=== PATIENT | female | born 1975 ===

== ENCOUNTER 2017-01-12 22:19 | Emergency (ER) | payer MEDICAID, OTHER ==
[2017-01-12 22:28] VITALS: BP 135/81; PULSE 78; RESP 18; TEMP 98.6; O2SAT 96; BMI 33.3
--- NOTE | 2017-01-12 23:04 | ED PDOC ---
Arrival/HPI - General Chief Complaint: ENT Problem Time Seen by Provider: 01/12/17 22:56 Historian: Patient - History of Present Illness Narrative History of Present Illness (Text): 01/12/17 22:40 41 year old female, with no past medical history, who presents to the emergency department complaining of right ear pain for the past 2 weeks. Patient reports she was given Ciprodex for an ear infection 2 weeks ago, but denies any significant relief. Patient has been taking Aleve for pain with minimal relief. Patient notes she has not been swimming recently and denies any fever, chills, cough, sore throat, rhinorrhea, nausea, vomiting, or any other complaints. Time/Duration: Other (2 weeks) Symptom Onset: Sudden Symptom Course: Unchanged Activities at Onset: Rest Context: Home Past Medical History - Provider Review Nursing Documentation Reviewed: Yes - Infectious Disease Hx of Infectious Diseases: None - Tetanus Immunization Tetanus Immunization: Unknown - Past Medical History Past Medical History: No Previous - Psychiatric Hx Depression: No Hx Emotional Abuse: No Hx Physical Abuse: No Hx Substance Use: No - Past Surgical History Past Surgical History: No Previous - Surgical History Hx Cholecystectomy: Yes - Anesthesia Hx Anesthesia: Yes Hx Anesthesia Reactions: No Hx Malignant Hyperthermia: No - Suicidal Assessment Feels Threatened In Home Enviroment: No Family/Social History - Physician Review Nursing Documentation Reviewed: Yes Family/Social History: No Known Family HX Smoking Status: Heavy Smoker > 10 Cigarettes Daily Hx Alcohol Use: No Hx Substance Use: No Allergies/Home Meds Allergies/Adverse Reactions: Allergies No Known Allergies Allergy (Verified 02/27/15 22:54) Home Medications: Home Meds Medication Instructions Recorded Confirmed No Known Home Med 01/12/17 01/12/17 Review of Systems - Physician Review All systems were reviewed & negative as marked: Yes - Review of Systems Constitutional: Normal. absent: Fevers Eyes: Normal ENT: Other (+right ear pain). absent: Sore Throat, Rhinorrhea Respiratory: Normal. absent: SOB, Cough Cardiovascular: Normal. absent: Chest Pain Gastrointestinal: Normal. absent: Nausea, Vomiting Physical Exam Vital Signs Reviewed: Yes Vital Signs Temp Pulse Resp BP Pulse Ox 01/12/17 22:24 98.6 F 78 18 135/81 96 Temperature: Afebrile Blood Pressure: Normal Pulse: Regular Respiratory Rate: Normal Appearance: Positive for: Well-Appearing, Non-Toxic, Comfortable Pain Distress: None Mental Status: Positive for: Alert and Oriented X 3 - Systems Exam Head: Present: Atraumatic, Normocephalic Pupils: Present: PERRL Extroacular Muscles: Present: EOMI Conjunctiva: Present: Normal Ears: Present: Other (Right ear mild cerumen build-up, TM is visible and is wnl) . No: Erythema, Normal Canal (Edema with white and black colored exudate in the right ear canal ), TM Bulging Mouth: Present: Moist Mucous Membranes Pharnyx: Present: Normal. No: ERYTHEMA, EXUDATE, TONSILS ENLARGED, Peritonsilar Swelling, Uvular Deviation, Muffled/Hoarse Voice, Soft Palate/ Uvular Edema, Other Nose (External): Present: Atraumatic Nose (Internal): Present: Normal Inspection Neck: Present: Normal Range of Motion. No: Meningeal Signs, MIDLINE TENDERNESS , Paraspinal Tenderness, Lymphadenopathy Respiratory/Chest: Present: Clear to Auscultation, Good Air Exchange. No: Respiratory Distress, Accessory Muscle Use Cardiovascular: Present: Regular Rate and Rhythm, Normal S1, S2. No: Murmurs Abdomen: Present: Normal Bowel Sounds. No: Tenderness, Distention, Peritoneal Signs Upper Extremity: Present: Normal Inspection. No: Cyanosis, Edema Lower Extremity: Present: Normal Inspection. No: Edema Neurological: Present: GCS=15, CN II-XII Intact, Speech Normal Skin: Present: Warm, Dry, Normal Color. No: Rashes Lymphatic: No: Cervical Adenopathy Psychiatric: Present: Alert, Oriented x 3, Normal Insight, Normal Concentration Medical Decision Making ED Course and Treatment: 01/12/17 22:45 Impression: 41 year old female with right ear pain. Differential Diagnosis included but are not limited to: otits externa, otitis media Plan: -- Cortisporin -- Tylenol -- Reassess and disposition Progress Notes: Exudates and excess cerumen was removed using a curette. Pt given a dose of cortisporin otic, bottle of cortisporin otic provided to the pt, advised to continue - administering 4 drops to the R ear 4x a day for 10 days. Pt advised that she must f/u with ENT referral as her symptoms maybe due to a fungal infection. Instructed to return to the ER at any time for any new or worsening symptoms. Pt verbalize understanding of diagnosis, treatment and plan, agrees with outpt follow up. - Medication Orders Current Medication Orders: Discontinued Medications Acetaminophen (Tylenol 325mg Tab) 975 mg PO STAT STA Stop: 01/12/17 23:22 Last Admin: 01/12/17 23:29 Dose: 975 mg Neomycin/Polymyxin/Hydrocortisone (Cortisporin Otic Susp) 0 ml AD STAT STA Stop: 01/12/17 23:23 Last Admin: 01/12/17 23:31 Dose: 4 drop Comments: right ear - PA / [employer] / Resident Statement / has reviewed & agrees with the documentation as recorded. - Scribe Statement The provider has reviewed the documentation as recorded by the Scribe Laureano robles under Jaja Anderson. All medical record entries made by the Scribe were at my direction and personally dictated by me. I have reviewed the chart and agree that the record accurately reflects my personal performance of the history, physical exam, medical decision making, and the department course for this patient. I have also personally directed, reviewed, and agree with the discharge instructions and disposition. Disposition/Present on Arrival - Present on Arrival Any Indicators Present on Arrival: No History of DVT/PE: No History of Uncontrolled Diabetes: No Urinary Catheter: No History of Decub. Ulcer: No History Surgical Site Infection Following: None - Disposition Have Diagnosis and Disposition been Completed?: Yes Diagnosis: Otitis externa of right ear Disposition: HOME/ ROUTINE Disposition Time: 00:00 Condition: STABLE Discharge Instructions (ExitCare): Otitis Externa (ED) Print Language: GEORGIAN Additional Instructions: Follow up with ENT referral provided in 1-2 days without fail. Take tylenol for fever and pain. Continue cortisporin ear drops - 4 drops to the R ear 4x a day for 10 days. Return to the ER at any time for any new or worsening symptoms. Referrals: Jean Marie Loaiza DO [Staff Provider] - Follow up with primary Forms: WORK NOTE
[2017-01-12] MEDS ORDERED: Neomycin/Polymyxin/Hydrocort Otic Susp (10 ml) AD STA (23:22)
== END 2017-01-12 23:54 | disposition home or self-care (01) ==
LOC: ED 22:19
DX: H60.91 Unspecified otitis externa, right ear (principal)

== ENCOUNTER 2017-08-27 11:01 | Emergency (ER) | payer OTHER ==
[2017-08-27 11:23] VITALS: BMI 33.3
--- NOTE | 2017-08-27 12:40 | ED PDOC ---
Arrival/HPI <Héctor Ballesteros - Last Filed: 08/27/17 12:56> <Stan Barry - Last Filed: 08/27/17 16:57> - General Chief Complaint: Lower Extremity Problem/Injury Time Seen by Provider: 08/27/17 11:18 - History of Present Illness Narrative History of Present Illness (Text): 08/27/17 12:36 Pt is a 42 yo F with no significant PMH presents to ED with left knee pain. Patient states that her left knee has been feeling heavy for the past week, but denies any pain or swelling during this time. However, when she woke up today the knee felt unstable with minimal discomfort. Patient was able to walk and get ready for work. When she arrived at work and stepped out of her car her left knee began to hurt to the point where she could not stand. Patient states she could stand, but had to transition most of her weight on her right leg. Pt states that she is unable to walk as pain and instability is severe in her left knee. Pt denies any blunt trauma or twisting motion. Pt denies any clicking or popping sensation. (Héctor Ballesteros) Past Medical History - Provider Review Nursing Documentation Reviewed: Yes - Infectious Disease Hx of Infectious Diseases: None - Tetanus Immunization Tetanus Immunization: Unknown - Reproductive Menopause: No - Past Medical History Past Medical History: No Previous - Psychiatric Hx Depression: No Hx Emotional Abuse: No Hx Physical Abuse: No Hx Substance Use: No - Past Surgical History Past Surgical History: No Previous - Surgical History Hx Cholecystectomy: Yes - Anesthesia Hx Anesthesia: Yes Hx Anesthesia Reactions: No Hx Malignant Hyperthermia: No - Suicidal Assessment Feels Threatened In Home Enviroment: No <Héctor Ballesteros - Last Filed: 08/27/17 12:56> Family/Social History - Physician Review Nursing Documentation Reviewed: Yes Family/Social History: Other (Non-contributory) Smoking Status: Heavy Smoker > 10 Cigarettes Daily Hx Alcohol Use: No Hx Substance Use: No <Héctor Ballesteros - Last Filed: 08/27/17 12:56> Allergies/Home Meds <Héctor Ballesteros - Last Filed: 08/27/17 12:56> <Stan Barry - Last Filed: 08/27/17 16:57> Allergies/Adverse Reactions: Allergies No Known Allergies Allergy (Verified 02/27/15 22:54) Review of Systems - Review of Systems Constitutional: Normal Eyes: Normal ENT: Normal Respiratory: Normal Cardiovascular: Normal Gastrointestinal: Normal Genitourinary Female: Normal Musculoskeletal: Arthralgias (left knee), Joint Swelling (left knee) Skin: Normal Neurological: Normal Endocrine: Normal Hemo/Lymphatic: Normal Psychiatric: Normal <Héctor Ballesteros - Last Filed: 08/27/17 12:56> Physical Exam Vital Signs Reviewed: Yes Temperature: Afebrile Blood Pressure: Normal Pulse: Regular Respiratory Rate: Normal Appearance: Positive for: Well-Appearing Pain Distress: Moderate Mental Status: Positive for: Alert and Oriented X 3 - Systems Exam Head: Present: Atraumatic, Normocephalic Extroacular Muscles: Present: EOMI Mouth: Present: Moist Mucous Membranes Neck: Present: Normal Range of Motion Respiratory/Chest: Present: Clear to Auscultation. No: Respiratory Distress, Accessory Muscle Use Cardiovascular: Present: Regular Rate and Rhythm, Normal S1, S2. No: Murmurs Abdomen: No: Tenderness, Distention, Rebound, Guarding Back: Present: Normal Inspection Upper Extremity: Present: Normal Inspection Lower Extremity: Present: NORMAL PULSES, Other (Left knee swelling, TTP lateral to patella. negative anterior/posterior drawer, varus/valgus strain, Juliano's , patellar grind. Patella tracks midline. No fibular head or tibial tuberosity tenderness.). No: CALF TENDERNESS (left), Luis Alfredo's Sign (left), Erythema (left lower extremity) Neurological: Present: GCS=15, CN II-XII Intact Skin: Present: Warm, Dry, Normal Color Psychiatric: Present: Alert, Oriented x 3 <Héctor Ballesteros - Last Filed: 08/27/17 12:56> Vital Signs Temp Pulse Resp BP Pulse Ox 08/27/17 13:18 98.1 F 66 16 135/70 99 08/27/17 11:30 99.4 F 87 18 132/82 97 Medical Decision Making <Héctor Ballesteros - Last Filed: 08/27/17 12:56> <Stan Barry - Last Filed: 08/27/17 16:57> ED Course and Treatment: 08/27/17 12:44 Assessment: 42 yo F presents to ED with left knee pain. Differential includes knee sprain, knee strain, meniscal injury, and fracture. Plan: - Left knee xray - Motrin - Reassess and disposition 08/27/17 12:50 Left knee x-ray as read by radiologist reveals normal radiographs of the left knee. 08/27/17 12:57 Discussed results with patient. Patient will be given knee immobilizer and crutches. Advised patient to rest and ice knee three times a day and follow up with orthopedist for further evaluation. (Héctor Ballesteros) 08/27/17 12:44 42 yo female with left knee pain. Agree with resident history and physical, assessment and plan as documented. (Stan Barry) - RAD Interpretation Radiology Orders: 08/27/17 12:22 KNEE LEFT 2 VIEWS (AP & LAT) [RAD] Stat - Medication Orders Current Medication Orders: Discontinued Medications Ibuprofen (Motrin Tab) 600 mg PO STAT STA Stop: 08/27/17 12:23 Last Admin: 08/27/17 12:33 Dose: 600 mg MAR Pain/Vitals Document 08/27/17 12:33 MS (Rec: 08/27/17 12:34 MS [id number]) Pain Reassessment Is This A Pain ReAssessment? No Sleep Is patient sleeping during reassessment? No Presence of Pain Presence of Pain Yes Pain Scale Used Pain Scale Used Numeric Location Pain Location Body Site Knee Description Intermittent Intensity 8 Scale Used Numeric Disposition/Present on Arrival - Present on Arrival Any Indicators Present on Arrival: No History of DVT/PE: No History of Uncontrolled Diabetes: No Urinary Catheter: No History of Decub. Ulcer: No History Surgical Site Infection Following: None - Disposition Have Diagnosis and Disposition been Completed?: Yes Disposition Time: 12:56 Patient Plan: Discharge <Héctor Ballesteros - Last Filed: 08/27/17 12:56> - Present on Arrival Any Indicators Present on Arrival: No <Stan Barry - Last Filed: 08/27/17 16:57> - Disposition Diagnosis: Strain of left knee Disposition: HOME/ ROUTINE Condition: STABLE Discharge Instructions (ExitCare): Lower Extremity Muscle Strain (DC) Additional Instructions: 1. Follow up with orthopedist within 1 week 2. Use knee immobilizer and crutches. May remove immobilizer when bathing. 3. Use Motrin as needed for pain; take with food 4. Ice knee three times a day for 15 minutes. 5. Return to ED if symptoms worsen. Prescriptions: Ibuprofen [Motrin] 600 mg PO Q6H PRN #20 tab PRN Reason: Pain, Mild (1-3) Referrals: Maliha Marie MD [Primary Care Provider] - Follow up with primary Koko Nunez MD [Staff Provider] - Follow up with primary Forms: [employer] (Turkish), WORK NOTE
--- NOTE | 2017-08-27 12:50 | RAD ---
PROCEDURE: Left Knee Radiographs. HISTORY: Pain. COMPARISON: None. FINDINGS: BONES: Normal. No fracture. JOINTS: Normal. No osteoarthritis. JOINT EFFUSION: None. OTHER FINDINGS: None. IMPRESSION: Normal radiographs of the left knee.
[2017-08-27 13:19] VITALS: BP 135/70; PULSE 66; RESP 16; TEMP 98.1; O2SAT 99
== END 2017-08-27 13:19 | disposition home or self-care (01) ==
LOC: ED 11:01
DX: S86.912A Strain of unspecified muscle(s) and tendon(s) at lower leg level, left leg, initial encounter (principal); X58.XXXA Exposure to other specified factors, initial encounter; F17.210 Nicotine dependence, cigarettes, uncomplicated